=== PATIENT | male | born 1990 | race Caucasian/White ===

== ENCOUNTER 2016-09-06 09:22 | Emergency (ER) | payer MEDICAID ==
[~2016-09-06] VITALS: Ht 195.6 cm; Wt 85.0 kg
[2016-09-06 09:24] VITALS: BP 133/79
== END 2016-09-06 10:17 | disposition home or self-care (01) ==
LOC: ED 09:43
DX: H66.91 Otitis media, unspecified, right ear (principal); H61.21 Impacted cerumen, right ear
CPT/HCPCS: 69210; 99284